=== PATIENT | female | born 2000 | race Caucasian/White ===

== ENCOUNTER 2020-02-08 11:36 | Outpatient (REF) | payer BC, SELFPAY ==
[2020-02-14 15:32] LABS: Campylobacter PCR Negative (Negative); Salmonella PCR Negative (Negative); Shiga Toxin PCR Negative (Negative); Shigella/Enteroinvasive Ecoli Negative (Negative)
== END 2020-02-08 11:56 ==
LOC: NCHCN 11:36
PROVIDERS: PCP Physician Assistant; Visit Provider Physician Assistant
DX: R19.7 Diarrhea, unspecified (principal)
CPT/HCPCS: 87329; 87505; 87324

== ENCOUNTER 2020-02-10 18:08 | Outpatient (REF) | payer BC, SELFPAY | END 2020-02-10 18:28 | LOC: NCHCN 18:08 | PROVIDERS: PCP Physician Assistant; Visit Provider Physician Assistant | DX: R19.7 Diarrhea, unspecified (principal) ==

== ENCOUNTER 2020-03-07 17:10 | Observation (INO) | payer SELFPAY ==
[2020-03-07] VITALS (29 sets, daily range): BP systolic 72–122; BP diastolic 42–98; PULSE 67–141; RESP 9–26; TEMP 36.3–37; O2SAT 95–100
[2020-03-07 17:39] LABS: Abs Immature Grans 0.02 10^3/uL (0.0-0.06); Absolute Basophil Count 0.04 10^3/uL (0.0-0.2); Absolute Eosinophil Count 0.35 10^3/uL (0.0-0.7); Absolute Lymphocyte Count 2.93 10^3/uL (1.2-3.4); Absolute Monocyte Count 0.58 10^3/uL (0.1-0.8); Absolute Neutrophil Count 5.45 10^3/uL (1.2-6.7); Basophils % 0.4; Eosinophils % 3.7; HCT 41.5 % (36.0-46.0); HGB 14.1 g/dL (11.2-15.7); Immature Grans % 0.2; Lymphocytes % 31.3; MCH 29.5 pg (27.0-33.0); MCV 86.8 fL (80-95); MPV 11.1 fL (8.0-11.0); Monocytes % 6.2; Neutrophils % 58.2; Nucleated RBC 0 %; Platelet Count 313 10^3/uL (130-400); RBC 4.78 10^6/uL (3.93-5.22); RDW-SD 38.4 fL; WBC 9.37 10^3/uL (4.4-10.8)
--- NOTE | 2020-03-07 17:40 | W.ED.GENAD ---
Discharge Plan Disposition Patient Disposition: [facility] INPATIENT Condition: Critical Discharge Details Clinical Impression: Incomplete miscarriage, Vaginal hemorrhage Attending Provider: Alisha Jacobsen Primary Care Provider: Abdirizak Viramontes ED Provider: Paul Love Discharge Data Discharge Date/Time-TO BE ENTERED AT DEPARTURE: 03/07/20 18:08 Medical Decision Making 19yo at ~12 weeks, recently told she had nonviable , here with heavy vaginal bleeding, passing clots over the past hour and a half. Patient tachycardic and normotensive on arrival. Mentating normally. External vaginal exam was performed with female nurse Angie and Mariella present. Patient with heavy clots and flowing hemorrhage from her vagina. Vagina was packed with Kerlix. I called and spoke with Dr. Jacobsen, on-call MERCHANDISE ADJUSTMENT CLERK and requested emergent consult for likely D&C. Given degree of hemorrhage, I will initiate emergent blood transfusion with O- blood. Patient covered with warm blankets. Patient received 1 unit of blood and was noted to have hypotension with systolic in the 80s. A second unit of O- was initiated. Plan to order TXA and will order additional crossmatch unit her OR. BP improved while receiving blood. Dr. Jacobsen here seeing patient and assumed care and does not feel TXA is warranted at this time. Plan to take patient emergently to the OR. HPI General Mode of arrival: ambulatory. Date/Time Provider Initiated Documentation: 03/07/20 17:13. Limitations to Documentation: no limitations. Information obtained by: patient. HPI Narrative: 19-year-old -0-3-1 at approximately 12 weeks with recently noted demise, arrives with chief complaint of vaginal bleeding. Patient notes bleeding started about an hour and a half prior to arrival. Bleeding has increased and is now severe. No modifiers. Patient is bleeding through her pants. She does have some associated abdominal cramping over the past couple hours. 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: 1 Review of Systems All systems reviewed & are unremarkable except as noted in HPI and below Constitutional Constitutional: Denies fever(s) ENT Ears, Nose, Mouth, and Throat: Denies dizziness Gastrointestinal Gastrointestinal: Denies abdominal pain Genitourinary Genitourinary: Reports as per HPI Neurologic Neurologic: Denies dizziness [facility] Medical History (Updated 03/07/20 @ 18:20 by Paul Love MD) Depression Social History Smoking/Tobacco Use Status: Current-Occasional Alcohol Intake: never Substance use type: marijuana Household members: spouse, children and other Details: H-Arturo. D- Number of Children: 1 current occupation: unemployed. Has worked in [employer] in past Sexually active: Yes History History 5 Para 1 Hx # Term Pregnancies 1 Multiple births Hx # Pregnancies 0 Ectopic pregnancies AB induced 0 Hx Number of Living Children 1 AB spontaneous 3 Exam Const General: no acute distress HENMT Mouth: moist mucous membranes Eyes Conjunctivae: normal conjunctivae Sclera: normal sclerae Neck Neck: trachea midline and supple Resp Auscultation: clear to auscultation bilaterally, no rales, no rhonchi and no wheezes Cardio Rate: tachycardic Rhythm: regular rhythm GI Palpation: soft, not firm, no guarding, no masses, not rigid and nontender External Female Exam: no lesions Speculum Exam - Vagina: vaginal bleeding OB/External & Speculum: vaginal bleeding Skin General skin exam: no rashes or lesions noted Neuro General: patient alert, patient awake and tone normal Extrem General: no edema Psych Appearance: grossly normal Mental Status: mental status grossly normal Course Vital Signs Vital signs: Vital Signs Temperature 36.4 C L 03/07/20 17:14 Pulse 125 H 03/07/20 17:14 Respiratory Rate 16 03/07/20 17:14 Blood Pressure 122/85 03/07/20 17:14 Pulse Oximetry 99 03/07/20 17:14 Temperature 36.4 C L 03/07/20 17:14 Temperature Source Skin 03/07/20 17:14 Pulse 125 H 03/07/20 17:14 Respiratory Rate 16 03/07/20 17:14 Respiratory Effort Non-Labored 03/07/20 17:14 Blood Pressure 122/85 03/07/20 17:14 Blood Pressure Position Sitting 03/07/20 17:14 Pulse Oximetry 99 03/07/20 17:14 Oxygen Delivery Method Room Air 03/07/20 17:14 Oxygen Flow Rate 0 03/07/20 17:14 Pain Level 3 03/07/20 17:21 Lab/Test Results Lab/Test Results: Laboratory Tests Range/Units 03/07/20 03/07/20 17:17 17:17 WBC (4.4-10.8) 10^3/uL 9.37 RBC (3.93-5.22) 10^6/uL 4.78 Hgb (11.2-15.7) g/dL 14.1 Hct (36.0-46.0) % 41.5 MCV (80-95) fL 86.8 MCH (27.0-33.0) pg 29.5 MCHC (32.0-36.0) % 34.0 RDW (11.7-14.6) % 12.0 Plt Count (130-400) 10^3/uL 313 MPV (8.0-11.0) fL 11.1 H Immature Gran % 0.2 Neutrophils % 58.2 Lymphocytes % 31.3 Monocytes % 6.2 Eosinophils % 3.7 Basophils % 0.4 Nucleated RBC % % 0 Absolute Neutrophils (1.2-6.7) 10^3/uL 5.45 Absolute Lymphocytes (1.2-3.4) 10^3/uL 2.93 Absolute Monocytes (0.1-0.8) 10^3/uL 0.58 Absolute Eosinophils (0.0-0.7) 10^3/uL 0.35 Absolute Basophils (0.0-0.2) 10^3/uL 0.04 Crossmatch See Detail Critical Care Time Critical Care Time Critical Care Time: Yes Total Critical Care Time: 45 Attestation: I spent greater than 45 minutes addressing this patient's immediate life threats. Please see MDM section of note. This time was spent engaged in work directly related to the patient's care, exclusive of separate procedures, and failure to initiate these interventions would have likely resulted in clinically significant or life threatening deterioration in the patient's condition.
--- NOTE | 2020-03-07 17:43 | NUR.NOTE ---
blood started as orderd at 1743Nursing Note:
[2020-03-07 17:49] LABS: HCG Qual (Serum) Positive
[2020-03-07 17:52] LABS: ALT 9 U/L (14-59); AST 9 U/L (15-37); Albumin 3.8 g/dL (3.4-5.0); Alkaline Phosphatase 62 U/L (46-116); Anion Gap 9.5 mmol/L (3-11); BUN 3 mg/dL (7-18); Bilirubin, Total 0.5 mg/dL (0.2-1.0); CO2 24.5 mmol/L (21.0-32.0); CREATININE 0.71 mg/dL (0.55-1.02); Chloride 103 mmol/L (98-107); Glucose 98 mg/dL (74-106); Potassium 3.1 mmol/L (3.5-5.1); Sodium 137 mmol/L (136-145); Total Protein 7.3 g/dL (6.4-8.2)
[2020-03-07] MEDS: Ondansetron 4 MG/2 ML VIAL (17:53)
--- NOTE | 2020-03-07 17:55 | NUR.NOTE ---
1st unit of uncrossed blood is infused. Nursing Note:
--- NOTE | 2020-03-07 17:59 | NUR.NOTE ---
uncrossed unit # 2 started at 1800Nursing Note:
--- NOTE | 2020-03-07 18:00 | NUR.NOTE ---
dr yrn santos is at the bed side at 1750Nursing Note:
--- NOTE | 2020-03-07 18:05 | HPE_ITS ---
Date of service: 03/07/20 Time of Service: 18:06 Assessment and Plan Assessment and plan (1) Incomplete miscarriage: Status: Acute Assessment and plan: Informed consent was obtained to perform a cervical dilatation and suction evacuation of uterine contents. I reviewed the risk of infection damage to surrounding structures including bowel bladder and blood vessels if her uterus was to be punctured. She was consented for a laparotomy in the event of uncontrolled uterine bleeding. Questions were answered. OR team notified. History of Present Illness History of Present Illness Chief Complaint: Bleeding incomplete Consults Requesting physician: Paul Love Narrative: Patient is a 19-year-old female with a LMP in late November, is. Approximately 12 weeks estimated gestational age. Patient had confirmation of appointment on 03/04/2020 at [facility] which showed a nonviable IUP. She has some spotting the day prior to her appointment. It is unclear if there was an IUP or a blighted ovum. Since that visit she experienced light brown pain vaginal discharge until this afternoon when she had a gush of bright red blood and began passing clots. She came to [facility] which was the nearest facility. Within 30 minutes of arrival in the emergency department her systolic blood pressure decreased from a 120 range to a systolic of 80. Pulse between 110 to 125. Initial pelvic exam passage of copious amounts of bright red blood and clots. Intravenous crystalloid fluid resuscitation was initiated and she has gone on to receive 1 unit of O- packed red blood cells. Review of Systems Constitutional Comments: Currently nauseated no emesis Cardiovascular Cardiovascular: Reports system reviewed and no additional complaints, except as documented Respiratory Respiratory: Reports system reviewed and no additional complaints, except as documented Gastrointestinal Gastrointestinal: Reports abdominal pain (Uterine cramping) and Reports nausea Genitourinary Genitourinary: Reports abnormal vaginal bleeding Psychiatric Psychiatric: Reports as per HPI (History of depression currently treated) [facility] Medical History (Updated 03/07/20 @ 18:20 by Paul Love MD) Depression Social History Smoking/Tobacco Use Status: Current-Occasional Alcohol Intake: never Substance use type: marijuana Household members: spouse, children and other Details: H-Arturo. D- Number of Children: 1 current occupation: unemployed. Has worked in [employer] in past Sexually active: Yes Female Reproductive History Menstrual control method: none (Had Mirena IUD removed 2 months before positive test) History History 5 Para 1 Hx # Term Pregnancies 1 Multiple births Hx # Pregnancies 0 Ectopic pregnancies AB induced 0 Hx Number of Living Children 1 AB spontaneous 3 Meds Home Medications and Allergies Home Medications Medication Instructions Recorded Confirmed Type sertraline 50 mg PO DAILY 03/07/20 03/07/20 History Allergies Allergy/AdvReac Type Severity Reaction Status Date / Time kiwi Allergy Severe Uncoded 03/07/20 17:20 seasonaL Allergy Uncoded 03/07/20 17:20 Exam Const General: no acute distress Nutritional Appearance: average body habitus Orientation: alert, awake and oriented x3 Resp Effort & Inspection: normal respiratory effort Auscultation: clear to auscultation bilaterally Cardio Rate: tachycardic Rhythm: regular rhythm GI Inspection: normal to inspection Palpation: soft and no hepatosplenomegaly Bimanual Exam- Vagina & Uterus: enlarged (12-13 weeks size, tender to touch clotted red blood in the vaginal vault ) Skin General skin exam: no rashes or lesions noted and pallor Extrem General: normal to inspection, full ROM and capillary refill normal (Nailbeds pale) Psych Appearance: grossly normal Mental Status: mental status grossly normal Speech and Movement: speech and movement normal Mood: congruent mood Results Labs Result diagrams: 03/07/20 17:17 03/07/20 17:17 Labs: Laboratory Results - last 24 hr 03/07/20 03/07/20 03/07/20 17:17 17:17 17:17 WBC RBC Hgb Hct MCV MCH MCHC RDW Plt Count MPV Immature Gran % Neutrophils % Lymphocytes % Monocytes % Eosinophils % Basophils % Nucleated RBC % Absolute Neutrophils Absolute Lymphocytes Absolute Monocytes Absolute Eosinophils Absolute Basophils Sodium 137 Potassium 3.1 L Chloride 103 Carbon Dioxide 24.5 Anion Gap 9.5 BUN 3 L Creatinine 0.71 Estimated GFR/1.73 m2 >= 60.00 Glucose 98 Calcium 9.0 Total Bilirubin 0.5 AST 9 L ALT 9 L Alkaline Phosphatase 62 Total Protein 7.3 Albumin 3.8 Serum HCG, Qual Positive A Crossmatch See Detail 03/07/20 17:17 WBC 9.37 RBC 4.78 Hgb 14.1 Hct 41.5 MCV 86.8 MCH 29.5 MCHC 34.0 RDW 12.0 Plt Count 313 MPV 11.1 H Immature Gran % 0.2 Neutrophils % 58.2 Lymphocytes % 31.3 Monocytes % 6.2 Eosinophils % 3.7 Basophils % 0.4 Nucleated RBC % 0 Absolute Neutrophils 5.45 Absolute Lymphocytes 2.93 Absolute Monocytes 0.58 Absolute Eosinophils 0.35 Absolute Basophils 0.04 Sodium Potassium Chloride Carbon Dioxide Anion Gap BUN Creatinine Estimated GFR/1.73 m2 Glucose Calcium Total Bilirubin AST ALT Alkaline Phosphatase Total Protein Albumin Serum HCG, Qual Crossmatch Last Vital Signs Temp 97.9 F 03/07/20 18:00 Pulse 73 03/07/20 18:00 Resp 16 03/07/20 18:00 BP 107/93 H 03/07/20 18:00 Pulse Ox 99 03/07/20 18:00 COVID-19 Screening Have you,or household,traveled outside [place] in last 14 days?: No Had IN PERSON contact w/suspected or confirmed C-19 person: No
[2020-03-07] MEDS: ELECTROLYTE-R SOLUTION 1,000 ML 30 ML IV (18:15)
--- NOTE | 2020-03-07 18:37 | POCSPONT_PTH ---
PATIENT: ARLEN GOMES LOC: OBS U#:[id number] AGE/SX: 19/F ROOM: OBS.306 RE03/07/[address]: Alisha Jacobsen : 2000 BED: A DIS: 03/08/2020 SPEC #: [id number] RECD: 03/09/20 12:30 STATUS: KAILYN REQ #: [id number] YOLANDA: 03/07/20 18:[address]: Alisha Jacobsen DEPT: Surgical Specimen RECD BY: Stefani Mcwilliams ENTERED: 03/09/20 12:33 SP TYPE: POCSPPHYLICIA FRANCES DR: Abdirizak Viramontes Tissues: 1 - ,SPONTANEOUS Procedures: GROSS AND MICRO LEVEL 4 Comments: [id number]
--- NOTE | 2020-03-07 19:05 | W.PM.OP ---
Date of service: 03/07/20 Time of Service: 19:15 Operative Note Operative Note DATE OF PROCEDURE: 03/07/20 PRE-OP DIAGNOSIS: Incomplete at 12 weeks estimated gestational age POST-OP DIAGNOSIS: same PROCEDURE: Cervical dilatation and suction evacuation of uterine contents SURGEON: Alisha Jacobsen ANESTHESIA: SOFI ESTIMATED BLOOD LOSS: 500 PATHOLOGY: other (Products of conception to pathology) COMPLICATIONS: None Patient was transported to: floor (Recovery performed in the OR. Transfer to floor after stable) Patient's condition: stable Indications: 19-year-old G5 4 P 1 female with a documented nonviable by ultrasound performed on 03/05/2020. She developed copious amount of bright red blood from her vagina and presented to the emergency department at [facility]. She was noted to be tachycardic and hypotensive. She received fluid and packed red blood cells and was consented for D&C in the OR. Findings: Uterus measured 12 weeks by bimanual exam. Cervix was fingertip dilated. No products of conception were palpable at the os. Uterus sounded to 10 cm. Moderate amount of products of conception within the uterine cavity. Uterus involuted appropriately after suction evacuation. Procedure Description: Patient was taken to the operating room where she was placed in the dorsal supine position and general endotracheal anesthesia was administered without difficulty. She was then placed in the dorsolithotomy position and prepped and draped in the usual sterile fashion. Care was taken to follow Covid precautions throughout the entire case. A surgical timeout was performed. A bivalve speculum was placed into the vagina, the anterior lip of the cervix grasped with a single-tooth tenaculum and the uterus sounded with the above-noted findings. The cervical os easily admitted a 18 Santiago dilator. A 8 mm curved suction cannula was attached to suction introduced into the uterine cavity and all 4 quadrants of the uterine cavity were suction curetted x2. By the second curetting no remaining products of conception were obtained. Suction cannula was removed a banjo curette was used to gently curette all 4 quadrants of the uterine cavity with minimal tissue returned. 1 final suction curettage was performed with no tissue returned. The instruments were removed the patient's vagina the tenaculum site was noted be hemostatic. By manual exam showed the uterus to be smaller, firm hemostatic. The patient was then placed in the dorsal supine position, awakened and extubated. After the the appropriate amount of time had passed she was transported to recovery area in stable condition. All sponge lap and needle counts are correct x2.
[2020-03-07] MEDS: Lactated Ringers 1,000 ML 150 ML IV (19:55)
[2020-03-07] MEDS: Ketorolac 30 MG/ML VIAL IVP (19:55)
[2020-03-07] MEDS: Zolpidem 5 MG TAB PO (21:49)
[2020-03-08 00:54] LABS: HCT 34.7 % (36.0-46.0); HGB 11.8 g/dL (11.2-15.7); MCH 29.5 pg (27.0-33.0); MCV 86.8 fL (80-95); MPV 10.9 fL (8.0-11.0); Platelet Count 215 10^3/uL (130-400); RDW 12.1 % (11.7-14.6); RDW-SD 38.8 fL; WBC 9.93 10^3/uL (4.4-10.8)
[2020-03-08] MEDS: Lactated Ringers 1,000 ML 150 ML IV (02:44)
[2020-03-08] MEDS: Acetaminophen 500 MG TAB PO (03:59)
[2020-03-08 04:02] VITALS: BP 109/65; PULSE 82; RESP 16; O2SAT 98
[2020-03-08 07:50] LABS: COVID-19 RT-PCR UVMMC Result Negative (Negative)
[2020-03-08 08:05] VITALS: BP 100/59; PULSE 96; RESP 16; TEMP 36.6; O2SAT 98
[2020-03-08] MEDS: Sertraline 50 MG TAB PO (08:11)
--- NOTE | 2020-03-08 09:12 | W.PM.DS.N ---
Date of service: 03/08/20 Time of Service: 09:12 DS: Diagnosis Discharge Diagnosis (1) Incomplete miscarriage: Status: Acute (2) History of D&C: Status: Acute Discharge Plan Disposition Patient Disposition: HOME Condition: Critical Discharge Details Admit Date/Time: 03/07/20 18:57 Admit Provider: Alisha Jacobsen Attending Provider: Alisha Jacobsen Primary Care Provider: Abdirizak Viramontes Hospital Course Hospital Course: Patient is a 5 para 1 female approximately 12 weeks estimated gestational age with a known missed AB who developed heavy bleeding the evening of admission. At the time of her presentation to the [facility] ED she had copious bright red blood and clots in the vagina, was hypotensive and tachycardic. She was transfused 2 units of packed red blood cells and underwent a cervical dilation and suction evacuation of uterine contents. Her surgery was uncomplicated. She was discharged to home on postop day 1 with stable vital signs and minimal uterine bleeding. She plans to have a Mirena IUD placed after complete involution of the uterus. [facility] her in the morning to schedule appointment time for the IUD insertion. Home Meds and New Rx's Prescriptions: No Action sertraline 50 mg Tablet 50 mg PO DAILY RF: 0 Discharge Instructions Additional Instructions: You can expect to have light bleeding like a period over the next week. Nothing in the vagina no intercourse, no tampons until bleeding has stopped. Use condoms to avoid until you have your IUD placed. You may take ibuprofen (Motrin) for cramping. Call [facility] at [phone] if you have a temperature of greater than 100.5, abdominal pain not relieved by ibuprofen or bleeding heavier than irregular. Activity:: Activity as Tolerated Equipment/Supplies:: No Equipment Needed Diet:: As Tolerated Discharge Orders Discharge Orders: Discharge Order (Routine); Ordered 03/08/20 Ordered By: Alisha Jacobsen DS: Summary Status at Discharge Functional status at discharge: independent ambulation Overall status at discharge: patient is progressing back to baseline Mental Status: mental status grossly normal Speech and Movement: speech and movement normal Mood: congruent mood Affect: normal affect Exam Const General: no acute distress Nutritional Appearance: average body habitus Orientation: alert, awake and oriented x3 Resp Effort & Inspection: normal respiratory effort Auscultation: clear to auscultation bilaterally GI Palpation: soft and nontender General: deferred Skin General skin exam: no rashes or lesions noted Extrem General: normal to inspection and full ROM Psych Appearance: grossly normal Mental Status: mental status grossly normal Speech and Movement: speech and movement normal Mood: congruent mood Affect: normal affect Attitude: cooperative Thought Process: normal Thought Content: normal Insight: insight good Judgment: judgment good DS: Data Vitals/I&O Vitals and I&O: Vital Signs Temperature 97.9 F 03/08/20 08:05 Temperature Source Oral 03/08/20 08:05 Pulse 96 H 03/08/20 08:05 Pulse Rhythm Regular 03/08/20 08:05 Pulse 73 03/07/20 18:01 Respiratory Rate 16 03/08/20 08:05 Respiratory Effort Non-Labored 03/08/20 08:05 Respiratory Depth Normal 03/08/20 08:05 Respiratory Pattern Normal 03/08/20 08:05 Blood Pressure 100/59 L 03/08/20 08:05 Blood Pressure Mean 77 03/07/20 18:06 Blood Pressure Position Sitting 03/07/20 17:14 Pulse Oximetry 98 03/08/20 08:05 Oxygen Delivery Method Room Air 03/08/20 08:05 Oxygen Flow Rate 0 03/08/20 08:05 Pain Level 2 03/08/20 08:05 Comment 03/08/20 08:05 Intake & Output 03/07/20 03/07/20 03/08/20 11:59 23:59 11:59 Intake Total 300 / 300 1500 / 1500 Output Total 975 / 975 Balance 300 / 300 525 / 525 Weight 190 lb Intake: IV 300 / 300 1000 / 1000 Oral 500 / 500 Output: Urine 975 / 975 Other: Urine Color Yellow Urine Appearance Clear Urine Odor None Emesis Description None Voiding Methods Toilet Data Completed and Pending Labs on day of discharge: Labs from last 24 hours 03/08/20 03/07/20 03/07/20 00:50 17:17 17:17 WBC 9.93 9.37 RBC 4.00 4.78 Hgb 11.8 D 14.1 Hct 34.7 L 41.5 MCV 86.8 86.8 MCH 29.5 29.5 MCHC 34.0 34.0 RDW 12.1 12.0 Plt Count 215 313 MPV 10.9 11.1 H Immature Gran % 0.2 Neutrophils % 58.2 Lymphocytes % 31.3 Monocytes % 6.2 Eosinophils % 3.7 Basophils % 0.4 Nucleated RBC % 0 Absolute Neutrophils 5.45 Absolute Lymphocytes 2.93 Absolute Monocytes 0.58 Absolute Eosinophils 0.35 Absolute Basophils 0.04 Sodium Potassium Chloride Carbon Dioxide Anion Gap BUN Creatinine Estimated GFR/1.73 m2 Glucose Calcium Total Bilirubin AST ALT Alkaline Phosphatase Total Protein Albumin Serum HCG, Qual COVID-19 PCR Negative Nasopharyn COVID-19 PCR Not Applicable Ref Test Perform Site [facility] lab Patient ABO/Rh Antibody Screen Crossmatch 03/07/20 03/07/20 03/07/20 17:17 17:17 17:17 WBC RBC Hgb Hct MCV MCH MCHC RDW Plt Count MPV Immature Gran % Neutrophils % Lymphocytes % Monocytes % Eosinophils % Basophils % Nucleated RBC % Absolute Neutrophils Absolute Lymphocytes Absolute Monocytes Absolute Eosinophils Absolute Basophils Sodium 137 Potassium 3.1 L Chloride 103 Carbon Dioxide 24.5 Anion Gap 9.5 BUN 3 L Creatinine 0.71 Estimated GFR/1.73 m2 >= 60.00 Glucose 98 Calcium 9.0 Total Bilirubin 0.5 AST 9 L ALT 9 L Alkaline Phosphatase 62 Total Protein 7.3 Albumin 3.8 Serum HCG, Qual Positive A COVID-19 PCR Nasopharyn COVID-19 PCR Ref Test Perform Site Patient ABO/Rh O Positive Antibody Screen Negative Crossmatch See Detail REPLACED BY [facility] Medical History (Updated 03/07/20 @ 18:20 by Paul Love MD) Depression Social History Smoking/Tobacco Use Status: Current-Occasional Alcohol Intake: never Substance use type: marijuana Household members: spouse, children and other Details: H-Arturo. 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
== END 2020-03-08 09:55 | disposition home or self-care (01) ==
LOC: ER 17:46 → SUR 18:06 → OBS 20:09
PROVIDERS: Admitting Provider Obstetrics & Gynecology Gynecology; Emergency Provider Student in an Organized Health Care Education/Training Program; PCP Physician Assistant; Visit Provider Obstetrics & Gynecology Gynecology
PROC: (CPT 59841; principal; 2020-03-07 18:00)
DX: O03.4 Incomplete spontaneous abortion without complication (principal); F32.9 Major depressive disorder, single episode, unspecified; Z11.59 Encounter for screening for other viral diseases; Z3A.12 12 weeks gestation of pregnancy
CPT/HCPCS: 59812; 36415; 36430; 80053; 85027; 86850; 86900; 86901; 86920; 88305; 96374; 99221; 99238; 99291; U0003; 84703; 85025; J1885; J2001; J2250; J2405; P9016

== ENCOUNTER 2020-07-13 01:14 | Emergency (ER) | payer SELFPAY ==
--- NOTE | 2020-07-13 01:21 | NUR.NOTE ---
Nursing Note:Per Registration patient states she will not come in unless her family comes in with her. I let Dr. White know patients c/o and her wanting her family come in with her. Per Dr. White no visitors . I went out to the [facility] and asked the woman if she was George? Patient stated very loudly I'm not stepping inside that door unless. I let her know I did not say she had to, I let her know I was just verifying her name. She said yes. I then let her know I had checked with Dr. White r/t having family come in with her and he let me know we are not allowing visitors. Patient then said very loudly I did not ask you to check with him, I want to talk with him myself. I let her know I would tell him that but right now he was with another patient. I let Dr. White know she wanted to see him and is still saying she will not come in to be seen without her family with her. Dr. White again said no visitor's that is our policy. I went back to the [facility] and again let her know I was sorry but per Dr. White and hospital policy we are not allowing visitors at this time. Patient then began loudly going on about this is her ? miscarriage and no one cares, he took an oath, then she said something about [facility], then went on and on about he just needs to know no one cares about those of us that fought for our country. Again I apologized to her and she again went on about I just need him to know and hear this , you can tell him.Patient and the man with her then left.
== END 2020-07-13 01:35 ==
LOC: ER 01:34
PROVIDERS: PCP Physician Assistant
DX: Z53.21 Procedure and treatment not carried out due to patient leaving prior to being seen by health care provider (principal)

== ENCOUNTER 2020-07-13 10:49 | Emergency (ER) | payer BC, SELFPAY ==
[2020-07-13 10:55] VITALS: BP 139/94; PULSE 107; RESP 18; TEMP 36.8; O2SAT 98
[2020-07-13 11:25] LABS: Bilirubin Negative (Negative); Blood Trace-intact (Negative); Clarity Clear (Clear); Glucose Negative (Negative); Ketones Negative (Negative); Leukocyte Esterase Negative (Negative); Nitrite Negative (Negative); Specific Gravity 1.015 (1.005-1.025); Urobilinogen 0.2 EU/dL (Up TO 0.2); pH 6.5 (5-8)
[2020-07-13 11:37] LABS: Bacteria Few HPF (Negative); C & S Indicated? No/Sq. Contamination; Casts Negative LPF (Negative); Crystals Negative HPF (Negative); Epithelial Cells Moderate HPF (Negative); Mucus Negative (Negative); Other Cells Few Renal (Negative); RBC 0-2 HPF (0-2); WBC 0-2 HPF (0-5)
[2020-07-13] MEDS: Normal Saline 1,000 ML 1000 ML IV ×2 (12:15→14:32)
[2020-07-13 12:18] LABS: Abs Immature Grans 0.02 10^3/uL (0.0-0.06); Absolute Basophil Count 0.06 10^3/uL (0.0-0.2); Absolute Eosinophil Count 0.15 10^3/uL (0.0-0.7); Absolute Lymphocyte Count 1.82 10^3/uL (1.2-3.4); Absolute Monocyte Count 0.56 10^3/uL (0.1-0.8); Absolute Neutrophil Count 7.33 10^3/uL (1.2-6.7); Basophils % 0.6; Eosinophils % 1.5; HCT 42.7 % (36.0-46.0); HGB 14.5 g/dL (11.2-15.7); Immature Grans % 0.2; Lymphocytes % 18.3; MCH 27.3 pg (27.0-33.0); MCV 80.4 fL (80-95); MPV 10.9 fL (8.0-11.0); Monocytes % 5.6; Neutrophils % 73.8; Nucleated RBC 0 %; Platelet Count 368 10^3/uL (130-400); RBC 5.31 10^6/uL (3.93-5.22); RDW 13.7 % (11.7-14.6); RDW-SD 39.9 fL; WBC 9.94 10^3/uL (4.4-10.8)
[2020-07-13] MEDS: Normal Saline Flush 10 ML SYR IVP (12:22)
[2020-07-13 12:31] LABS: ALT 24 U/L (14-59); AST 20 U/L (15-37); Albumin 4.5 g/dL (3.4-5.0); Alkaline Phosphatase 91 U/L (46-116); Anion Gap 12.2 mmol/L (3-11); BUN 9 mg/dL (7-18); Bilirubin, Total 0.4 mg/dL (0.2-1.0); CO2 23.8 mmol/L (21.0-32.0); CREATININE 0.9 mg/dL (0.55-1.02); Calcium 9.7 mg/dL (8.5-10.1); Chloride 102 mmol/L (98-107); Glucose 85 mg/dL (74-106); Potassium 4.1 mmol/L (3.5-5.1); Sodium 138 mmol/L (136-145); Total Protein 8.8 g/dL (6.4-8.2)
--- NOTE | 2020-07-13 13:05 | W.ED.GENAD ---
Discharge Plan Disposition Patient Disposition: HOME Condition: Stable Discharge Details Clinical Impression: Vaginal bleeding Primary Care Provider: Abdirizak Viramontes ED Provider: Lisa Love Home Meds and New Rx's Prescriptions: Continued ferrous sulfate [iron] 325 mg (65 mg iron) Tablet 325 mg PO DAILY RF: 0 multivitamin Tablet,Chewable 2 tab PO DAILY RF: 0 No Action ziprasidone HCl [Geodon] 20 mg capsule 20 mg PO BID RF: 0 sertraline 100 mg tablet 50 mg PO DAILY RF: 0 Discharge Instructions Instructions: Abnormal (Dysfunctional) Uterine Bleeding (ED) Additional Instructions: Please return immediately to the emergency department if you develop any new or worsening symptoms, if your condition does not improve as expected, or if you become otherwise concerned. It is extremely important that you call soon as possible to make an appointment to be seen in follow-up for this visit by your primary care doctor and system designer as we discussed. Referrals: Abdiirzak Viramontes [Primary Care Provider] - Alisha Jacobsen MD [ [facility] STAFF PHYSICIAN] - Discharge Data Discharge Date/Time-TO BE ENTERED AT DEPARTURE: 07/13/20 15:38 Medical Decision Making George Laboy is a 19-year-old woman with history of depression who presents emergency department with vaginal bleeding with concern for possible miscarriage. On exam patient is well and nontoxic-appearing. There is no abdominal tenderness palpation. Concern for miscarriage, ectopic, anemia, dehydration, metabolic/lyte derangement, other. Exam/history at this time is not consistent with sepsis, ovarian torsion, PID. Plan for screening labs, IV fluid hydration, urinalysis, urine . Upreg negative. Labs reviewed, WBCs 9.9, anion gap 12.2. Hemoglobin 14.5. Patient walked to bathroom without issue. On reassessment patient reports that she has no current vaginal bleeding and does not think that she has had any bleeding since earlier this morning. Patient reports that she feels very well and is asymptomatic at this time. Prior to reassessment is notified by nursing that on their assessment patient noted some suicidal thinking. Patient reports to me that she has significant trauma in her past, and because of this sometimes has fleeting suicidal thoughts, but she reports that she is in a really good place right now and am surrounded by people that love me and take care of me. Patient reports that she would never harm herself and has no plans to hurt herself. Patient reports that she feels safe at home where she lives with her and her children, with her mother living close by down the street. She denies any type of self-harm. She states that nobody is threatening her or trying to hurt her. Awaiting for completion of IV fluid, anticipate discharge home. Patient placed on care management list for outpatient follow-up with her PCP and with INPATIENT PHARMACIST. I had a lengthy discussion with Patient regarding return to emergency department precautions, home care, and importance of outpatient follow-up. Pt verbalizes understanding of the plan and is amenable. Patient discharged to home with clear plan for outpatient follow-up. All questions were answered. Disposition decision was made weighing the risks and benefits of hospitalization versus outpatient treatment, the risk for further decompensation, and the patient's wishes. Medical Records Medical records reviewed: Yes I reviewed the patient's medical records. Lab Data Lab results reviewed: Yes I reviewed the patient's lab results. Labs: Laboratory Tests Range/Units 07/13/20 07/13/20 07/13/20 11:06 11:19 12:05 WBC (4.4-10.8) 10^3/uL RBC (3.93-5.22) 10^6/uL Hgb (11.2-15.7) g/dL Hct (36.0-46.0) % MCV (80-95) fL MCH (27.0-33.0) pg MCHC (32.0-36.0) % RDW (11.7-14.6) % Plt Count (130-400) 10^3/uL MPV (8.0-11.0) fL Immature Gran % Neutrophils % Lymphocytes % Monocytes % Eosinophils % Basophils % Nucleated RBC % % Absolute Neutrophils (1.2-6.7) 10^3/uL Absolute Lymphocytes (1.2-3.4) 10^3/uL Absolute Monocytes (0.1-0.8) 10^3/uL Absolute Eosinophils (0.0-0.7) 10^3/uL Absolute Basophils (0.0-0.2) 10^3/uL Sodium (136-145) mmol/L 138 Potassium (3.5-5.1) mmol/L 4.1 Chloride (98-107) mmol/L 102 Carbon Dioxide (21.0-32.0) mmol/L 23.8 Anion Gap (3-11) mmol/L 12.2 H BUN (7-18) mg/dL 9 Creatinine (0.55-1.02) mg/dL 0.9 Estimated GFR/1.73 m2 (mL/min/1.73m2) >= 60.00 Glucose (74-106) mg/dL 85 Calcium (8.5-10.1) mg/dL 9.7 Total Bilirubin (0.2-1.0) mg/dL 0.4 AST (15-37) U/L 20 ALT (14-59) U/L 24 Alkaline Phosphatase (46-116) U/L 91 Total Protein (6.4-8.2) g/dL 8.8 H Albumin (3.4-5.0) g/dL 4.5 TSH Cancelled Urine Color (Yellow) Yellow Urine Clarity (Clear) Clear Urine pH (5-8) 6.5 Ur Specific Bryan (1.005-1.025) 1.015 Urine Protein (Negative) mg/dL 30 H Urine Ketones (Negative) mg/dL Negative Urine Blood (Negative) Trace-intact H Urine Nitrite (Negative) Negative Urine Bilirubin (Negative) Negative Urine Urobilinogen (Up TO 0.2) EU/dL 0.2 Ur Leukocyte Esterase (Negative) Negative Urine RBC (0-2) HPF 0-2 Urine WBC (0-5) HPF 0-2 Ur Epithelial Cells (Negative) HPF Moderate Urine Crystals (Negative) HPF Negative Urine Bacteria (Negative) HPF Few Urine Casts (Negative) LPF Negative Urine Mucus (Negative) Negative Urine Other (Negative) Few renal Ur Culture Indicated? No/sq. contamination Urine Glucose (Negative) mg/dL Negative Range/Units 07/13/20 12:05 WBC (4.4-10.8) 10^3/uL 9.94 RBC (3.93-5.22) 10^6/uL 5.31 H Hgb (11.2-15.7) g/dL 14.5 Hct (36.0-46.0) % 42.7 MCV (80-95) fL 80.4 MCH (27.0-33.0) pg 27.3 MCHC (32.0-36.0) % 34.0 RDW (11.7-14.6) % 13.7 Plt Count (130-400) 10^3/uL 368 MPV (8.0-11.0) fL 10.9 Immature Gran % 0.2 Neutrophils % 73.8 Lymphocytes % 18.3 Monocytes % 5.6 Eosinophils % 1.5 Basophils % 0.6 Nucleated RBC % % 0 Absolute Neutrophils (1.2-6.7) 10^3/uL 7.33 H Absolute Lymphocytes (1.2-3.4) 10^3/uL 1.82 Absolute Monocytes (0.1-0.8) 10^3/uL 0.56 Absolute Eosinophils (0.0-0.7) 10^3/uL 0.15 Absolute Basophils (0.0-0.2) 10^3/uL 0.06 Sodium (136-145) mmol/L Potassium (3.5-5.1) mmol/L Chloride (98-107) mmol/L Carbon Dioxide (21.0-32.0) mmol/L Anion Gap (3-11) mmol/L BUN (7-18) mg/dL Creatinine (0.55-1.02) mg/dL Estimated GFR/1.73 m2 (mL/min/1.73m2) Glucose (74-106) mg/dL Calcium (8.5-10.1) mg/dL Total Bilirubin (0.2-1.0) mg/dL AST (15-37) U/L ALT (14-59) U/L Alkaline Phosphatase (46-116) U/L Total Protein (6.4-8.2) g/dL Albumin (3.4-5.0) g/dL TSH Urine Color (Yellow) Urine Clarity (Clear) Urine pH (5-8) Ur Specific Bryan (1.005-1.025) Urine Protein (Negative) mg/dL Urine Ketones (Negative) mg/dL Urine Blood (Negative) Urine Nitrite (Negative) Urine Bilirubin (Negative) Urine Urobilinogen (Up TO 0.2) EU/dL Ur Leukocyte Esterase (Negative) Urine RBC (0-2) HPF Urine WBC (0-5) HPF Ur Epithelial Cells (Negative) HPF Urine Crystals (Negative) HPF Urine Bacteria (Negative) HPF Urine Casts (Negative) LPF Urine Mucus (Negative) Urine Other (Negative) Ur Culture Indicated? Urine Glucose (Negative) mg/dL HPI General Mode of arrival: ambulatory. Date/Time Provider Initiated Documentation: 07/13/20 10:50. Limitations to Documentation: no limitations. Information obtained by: patient, RN notes reviewed and old records reviewed. HPI Narrative: George Laboy is a 19-year-old woman with a history of depression and recurrent miscarriages presenting to the emergency department vaginal bleeding. Patient reports that she has had multiple miscarriages in the past, and had a miscarriage in February requiring D&C and blood transfusion. Patient reports that she began noticing vaginal bleeding 2 days ago, which had small clot (patient reports is dime size) which is not typical for her usual period. Patient reports that she had some larger clots yesterday evening. Patient reports that she has almost no vaginal bleeding at this time. She denies any pain. Patient reports that she came to the emergency department because she was concerned that she may be miscarrying given her history. Has not taken a test at home. Patient states that she is not currently using any control. She states that her last menstrual period was approximately 06/06/2020. Patient denies fever, vomiting, diarrhea, dysuria, cough, shortness of breath, numbness, weakness. Patient reports that she does not drink alcohol, smokes cigarettes, states that she used ecstasy 2 days ago, denies other drug use. Related Data Home Medications Medication Instructions Recorded Confirmed ferrous sulfate [iron] 325 mg PO DAILY 07/13/20 multivitamin 2 tab PO DAILY 07/13/20 07/13/20 sertraline 100 mg tablet 50 mg PO DAILY tab 07/23/20 ziprasidone HCl 20 mg capsule 20 mg PO BID 07/23/20 Allergies Allergy/AdvReac Type Severity Reaction Status Date / Time kiwi Allergy Severe Uncoded 07/23/20 15:05 seasonaL Allergy Uncoded 07/23/20 15:05 General Stated Complaint: INPATIENT PHARMACIST LAUREL: 3 Review of Systems Narrative: Constitutional: denies fevers Eyes: denies eye pain ENT: denies ear pain, dental pain, sore throat Cardiovascular: denies chest pain Respiratory: denies SOB, cough GI: denies abdominal pain, vomiting, diarrhea : denies flank pain, dysuria, unusual vaginal discharge, reports vaginal bleeding as per HPI MSK: denies back pain, neck pain, arthralgias, myalgias Skin: denies rash Neuro: denies headaches, numbness, weakness [facility] Medical History (Updated 07/13/20 @ 15:30 by Lisa Love MD) Depression Social History Smoking/Tobacco Use Status: Current-Occasional Smoking risk assessment performed?: Yes Alcohol Intake: never Drug use: Daily Substance use type: marijuana Details: daily mairjuana, used Ramona 3 days ago for first and last time Household members: spouse, children and other Details: H-Arturo. D- Number of Children: 1 current occupation: unemployed. Has worked in [employer] in past Sexually active: Yes Do you feel safe at home: Yes Do you feel safe in your relationship?: Yes Female Reproductive History Menstrual control method: none (Had Mirena IUD removed 2 months before positive test) History History 5 Para 1 Hx # Term Pregnancies 1 Multiple births Hx # Pregnancies 0 Ectopic pregnancies AB induced 0 Hx Number of Living Children 1 AB spontaneous 3 Exam Narrative Exam Narrative: Constitutional: well and [id number], pleasant, conversing normally HENT: head atraumatic/normocephalic/normal inspection, mucous membranes moist Eyes: conjunctiva normal, sclera normal, pupils 3mm b/l Neck: no stridor, normal ROM, trachea midline Chest: normal inspection Resp: normal work of breathing, speaking in full sentences Cardio: Borderline rate at 100, normal rhythm GI: abdomen soft, non-tender, non-distended : pelvic exam deferred Skin: warm, dry, normal color, no rash Neuro: alert, not altered, grossly non-focal, normal tone Ext: no edema Psych: normal mood, normal affect, normal behavior Course Vital Signs Vital signs: Vital Signs Temperature 36.8 C 07/13/20 10:55 Pulse 107 H 07/13/20 10:55 Respiratory Rate 18 07/13/20 10:55 Blood Pressure 139/94 H 07/13/20 10:55 Pulse Oximetry 98 07/13/20 10:55 Temperature 36.8 C 07/13/20 10:55 Pulse 107 H 07/13/20 10:55 Respiratory Rate 18 07/13/20 10:55 Respiratory Effort Non-Labored 07/13/20 11:21 Blood Pressure 139/94 H 02/22/21 10:55 Blood Pressure Position Sitting 07/13/20 10:55 Pulse Oximetry 98 07/13/20 10:55 Oxygen Delivery Method Room Air 07/13/20 10:55 Oxygen Flow Rate 0 07/13/20 10:55 Lab/Test Results Lab/Test Results: Laboratory Tests Range/Units 07/13/20 07/13/20 07/13/20 11:06 11:19 12:05 WBC (4.4-10.8) 10^3/uL RBC (3.93-5.22) 10^6/uL Hgb (11.2-15.7) g/dL Hct (36.0-46.0) % MCV (80-95) fL MCH (27.0-33.0) pg MCHC (32.0-36.0) % RDW (11.7-14.6) % Plt Count (130-400) 10^3/uL MPV (8.0-11.0) fL Immature Gran % Neutrophils % Lymphocytes % Monocytes % Eosinophils % Basophils % Nucleated RBC % % Absolute Neutrophils (1.2-6.7) 10^3/uL Absolute Lymphocytes (1.2-3.4) 10^3/uL Absolute Monocytes (0.1-0.8) 10^3/uL Absolute Eosinophils (0.0-0.7) 10^3/uL Absolute Basophils (0.0-0.2) 10^3/uL Sodium (136-145) mmol/L 138 Potassium (3.5-5.1) mmol/L 4.1 Chloride (98-107) mmol/L 102 Carbon Dioxide (21.0-32.0) mmol/L 23.8 Anion Gap (3-11) mmol/L 12.2 H BUN (7-18) mg/dL 9 Creatinine (0.55-1.02) mg/dL 0.9 Estimated GFR/1.73 m2 (mL/min/1.73m2) >= 60.00 Glucose (74-106) mg/dL 85 Calcium (8.5-10.1) mg/dL 9.7 Total Bilirubin (0.2-1.0) mg/dL 0.4 AST (15-37) U/L 20 ALT (14-59) U/L 24 Alkaline Phosphatase (46-116) U/L 91 Total Protein (6.4-8.2) g/dL 8.8 H Albumin (3.4-5.0) g/dL 4.5 TSH Cancelled Urine Color (Yellow) Yellow Urine Clarity (Clear) Clear Urine pH (5-8) 6.5 Ur Specific Bryan (1.005-1.025) 1.015 Urine Protein (Negative) mg/dL 30 H Urine Ketones (Negative) mg/dL Negative Urine Blood (Negative) Trace-intact H Urine Nitrite (Negative) Negative Urine Bilirubin (Negative) Negative Urine Urobilinogen (Up TO 0.2) EU/dL 0.2 Ur Leukocyte Esterase (Negative) Negative Urine RBC (0-2) HPF 0-2 Urine WBC (0-5) HPF 0-2 Ur Epithelial Cells (Negative) HPF Moderate Urine Crystals (Negative) HPF Negative Urine Bacteria (Negative) HPF Few Urine Casts (Negative) LPF Negative Urine Mucus (Negative) Negative Urine Other (Negative) Few renal Ur Culture Indicated? No/sq. contamination Urine Glucose (Negative) mg/dL Negative Range/Units 07/13/20 12:05 WBC (4.4-10.8) 10^3/uL 9.94 RBC (3.93-5.22) 10^6/uL 5.31 H Hgb (11.2-15.7) g/dL 14.5 Hct (36.0-46.0) % 42.7 MCV (80-95) fL 80.4 MCH (27.0-33.0) pg 27.3 MCHC (32.0-36.0) % 34.0 RDW (11.7-14.6) % 13.7 Plt Count (130-400) 10^3/uL 368 MPV (8.0-11.0) fL 10.9 Immature Gran % 0.2 Neutrophils % 73.8 Lymphocytes % 18.3 Monocytes % 5.6 Eosinophils % 1.5 Basophils % 0.6 Nucleated RBC % % 0 Absolute Neutrophils (1.2-6.7) 10^3/uL 7.33 H Absolute Lymphocytes (1.2-3.4) 10^3/uL 1.82 Absolute Monocytes (0.1-0.8) 10^3/uL 0.56 Absolute Eosinophils (0.0-0.7) 10^3/uL 0.15 Absolute Basophils (0.0-0.2) 10^3/uL 0.06 Sodium (136-145) mmol/L Potassium (3.5-5.1) mmol/L Chloride (98-107) mmol/L Carbon Dioxide (21.0-32.0) mmol/L Anion Gap (3-11) mmol/L BUN (7-18) mg/dL Creatinine (0.55-1.02) mg/dL Estimated GFR/1.73 m2 (mL/min/1.73m2) Glucose (74-106) mg/dL Calcium (8.5-10.1) mg/dL Total Bilirubin (0.2-1.0) mg/dL AST (15-37) U/L ALT (14-59) U/L Alkaline Phosphatase (46-116) U/L Total Protein (6.4-8.2) g/dL Albumin (3.4-5.0) g/dL TSH Urine Color (Yellow) Urine Clarity (Clear) Urine pH (5-8) Ur Specific Bryan (1.005-1.025) Urine Protein (Negative) mg/dL Urine Ketones (Negative) mg/dL Urine Blood (Negative) Urine Nitrite (Negative) Urine Bilirubin (Negative) Urine Urobilinogen (Up TO 0.2) EU/dL Ur Leukocyte Esterase (Negative) Urine RBC (0-2) HPF Urine WBC (0-5) HPF Ur Epithelial Cells (Negative) HPF Urine Crystals (Negative) HPF Urine Bacteria (Negative) HPF Urine Casts (Negative) LPF Urine Mucus (Negative) Urine Other (Negative) Ur Culture Indicated? Urine Glucose (Negative) mg/dL POC- Test(urine) Negative
[2020-07-13 14:04] VITALS: BP 152/100; PULSE 106; RESP 18; TEMP 37; O2SAT 99
[2020-07-13 15:27] VITALS: BP 110/71; PULSE 94; RESP 16; TEMP 36.6; O2SAT 98
--- NOTE | 2020-07-13 15:35 | NUR.NOTE ---
[facility]erral to [facility], patient would like to see Dr. Valderrama for recurrent miscarriages.Nursing Note:
== END 2020-07-13 15:38 | disposition home or self-care (01) ==
PROVIDERS: Emergency Provider Student in an Organized Health Care Education/Training Program; PCP Physician Assistant
DX: N93.8 Other specified abnormal uterine and vaginal bleeding (principal); F32.9 Major depressive disorder, single episode, unspecified
CPT/HCPCS: 80053; 81025; 96360; 96361; 99284; 81003; 81015; 84443; 85025; 99283